=== PATIENT | male | born 1935 | race Caucasian/White ===

== ENCOUNTER 2017-12-05 12:04 | Inpatient (IN) | payer MEDICARE, OTHER ==
[~2017-12-05] VITALS: Ht 165.1 cm; Wt 57.5 kg
[2017-12-05] MEDS: PHENAZOPYRIDINE HCL 100 MG TAB PO SCH (01:00)
[~2017-12-05 12:04] MED LIST: AMLO10TA12; ATEN50TA80; CLOT1CRE13; FOSI20TA3; GABA300C10; HYDR10TA35; HYDRX10T; NIAC1TAB; OXYC-589; PANTOPRAZOLE; RANI300T3; TEMA15CA
[2017-12-05] MEDS ORDERED: ASPirin 81 mg TAB PO ONE (12:30)
[2017-12-05] MEDS ORDERED: MORPHINE SULFATE 4 MG/ML SYR/VIAL IV ONE ×2 (13:30→16:00)
[2017-12-05] MEDS ORDERED: PANTOPRAZOLE 40 MG/10 ML VIAL IV ONE (13:30)
[2017-12-05] MEDS ORDERED: ONDANSETRON HCL 4 MG/2 ML VIAL IV ONE (13:30)
[2017-12-05 13:43] LABS: Basophils # (auto) 0 uL; Basophils % (auto) 0.3 % (0.0-2.0); Eosinophils # (auto) 0 uL; Eosinophils % (auto) 0.5 % (0.0-7.0); Hematocrit 39.8 % (41.0-53.0); Hemoglobin 13.3 g/dL (13.5-17.5); Lymphocytes # (auto) 1.3 uL; Lymphocytes % (auto) 12.8 % (10.0-50.0); Mean Corpuscular Hemoglobin 30.9 pg (28.0-32.0); Mean Corpuscular Hgb Conc. 33.6 g/dL (32.0-36.0); Mean Corpuscular Volume 92.1 fL (80.0-100.0); Monocytes # (auto) 0.7 uL; Monocytes % (auto) 7.1 % (0.0-12.0); Neutrophils # (auto) 8.2 uL; Neutrophils % (auto) 79.3 % (37.0-80.0); Platelet Count (auto) 181 10^3/uL (140-450); Red Blood Cells 4.32 10^6/uL (4.5-5.90); Red Cell Distribution Width 13.8 % (11.8-14.3); White Blood Cell 10.4 10^3/uL (4.4-10.8)
[2017-12-05 13:57] LABS: INR 1.03 (0.9-1.15); Partial Thromboplastin Time 28.2 sec (23.78-33.04)
[2017-12-05 14:02] LABS: Albumin 3.7 g/dL (3.4-5.0); Calcium 8.6 mg/dL (8.5-10.1); Magnesium 2.3 mg/dL (1.6-2.6); Potassium 3.5 mmol/L (3.5-5.1)
[2017-12-05 14:04] LABS: BUN/Creatinine Ratio 14.5
[2017-12-05 14:09] LABS: Bilirubin, Total 0.4 mg/dL (0.2-1.0); Total Protein 7.6 g/dL (6.4-8.2)
[2017-12-05] MEDS ORDERED: FUROSEMIDE 40 MG/4 ML VIAL IV ONE (14:15)
[2017-12-05] MEDS ORDERED: cloNIDine HCL 0.1 MG TAB PO PRN (14:15)
[2017-12-05] MEDS ORDERED: POTASSIUM CHL 10 Meq TABLET PO ONE (14:15)
[2017-12-05] MEDS ORDERED: PANTOPRAZOLE 40 MG TAB PO ONE (14:15)
[2017-12-05] MEDS ORDERED: ONDANSETRON HCL 4 MG/2 ML VIAL IV PRN (14:30)
[2017-12-05] MEDS ORDERED: NITROGLYCERIN 0.4 MG SL TAB SL ONE (14:30)
[2017-12-05] MEDS ORDERED: ZOLPIDEM TARTRATE 5 MG TAB PO PRN (14:30)
[2017-12-05] MEDS ORDERED: NITROGLYCERIN 0.4 MG SL TAB SL PRN ×2 (14:30)
[2017-12-05] MEDS ORDERED: ALUM & MAG HYDROX-SIMETH LIQ(MAALOX) 30 ML PO ONE (14:30)
[2017-12-05] MEDS ORDERED: MORPHINE SULFATE 4 MG/ML SYR/VIAL IV PRN (14:30)
[2017-12-05] MEDS ORDERED: ENOXAPARIN SOD 60 MG/0.6 ML SYRINGE SC ONE (15:00)
[2017-12-05] MEDS ORDERED: ENOXAPARIN SOD 30 MG/0.3 ML SYRINGE IV ONE (15:30)
[2017-12-05] MEDS: MORPHINE SULF INJ 2 MG/ML SYRINGE 1ML IV PRN ×2 (15:39→20:15)
[2017-12-05] MEDS ORDERED: HEPARIN SODIUM (PORCINE) 5000 UNITS/ML 1ML VIAL IV ONE (16:00)
[2017-12-05] MEDS ORDERED: NITROGLYCERIN 50MG/250ML 250 ML IV SCH (16:00)
[2017-12-05] MEDS ORDERED: LIDOCAINE 2% (LOCAL ANESTH.) PF 5ml SDV ONE (16:27)
[2017-12-05] MEDS ORDERED: IODIXANOL 320MG/ML 100ML BTL IV ONE (16:27)
[2017-12-05] MEDS ORDERED: EPINEPHrine HCL 1 MG/10 ML SYRG ONE (16:34)
[2017-12-05] MEDS ORDERED: fentaNYL CITRATE 100 MCG/2 ML VL ONE (16:34)
[2017-12-05] MEDS ORDERED: SODIUM CHL 0.9% 50 ML ONE (16:34)
[2017-12-05] MEDS ORDERED: MIDAZOLAM HCL 1MG/1ML-2 ML VIAL ONE (16:34)
[2017-12-05] MEDS ORDERED: ANGIOMAX 250 MG VIAL IV ONE (16:34)
[2017-12-05] MEDS ORDERED: ATROPINE SULF 1 MG/10ml SYR ONE (16:34)
[2017-12-05] MEDS ORDERED: EPINEPHrine HCL 250 ML IV ONE (17:25)
[2017-12-05] MEDS ORDERED: ASPirin 325 MG TAB ONE (17:37)
[2017-12-05] MEDS ORDERED: CLOPIDOGREL 300 MG TAB ONE (17:37)
[2017-12-05] MEDS ORDERED: FUROSEMIDE 20 MG/2 ML VIAL IV ONE (18:15)
[2017-12-05] MEDS ORDERED: FUROSEMIDE 20 MG/2 ML VIAL ONE (18:20)
[2017-12-05 19:33] VITALS: BP 73/28
[2017-12-05] MEDS: EPINEPHrine HCL INJECTION 4 MG in SODIUM CHL 0.9% 250 ML IV SCH (20:15)
[2017-12-05] MEDS: ATENOLOL 25 MG TAB PO SCH (22:00)
[2017-12-05] MEDS: SODIUM CHLOR 0.9% PF (SALINE LOCK) 10ML VIAL/SYR IV SCH (22:07)
[2017-12-05] MEDS: ATORVASTATIN 20 MG TAB PO SCH (22:07)
[2017-12-05] MEDS: GABAPENTIN 300 MG CAP PO SCH (22:08)
[2017-12-06] VITALS (30 sets, daily range): BP systolic 81–157; BP diastolic 33–126
[2017-12-06] MEDS ORDERED: MORPHINE SULF INJ 2 MG/ML SYRINGE 1ML ONE ×2 (01:58→07:38)
[2017-12-06] MEDS: MORPHINE SULF INJ 2 MG/ML SYRINGE 1ML IV PRN ×3 (02:03→21:30)
[2017-12-06 04:20] LABS: Basophils # (auto) 0 uL; Basophils % (auto) 0.2 % (0.0-2.0); Eosinophils # (auto) 0 uL; Hematocrit 39.1 % (41.0-53.0); Hemoglobin 12.8 g/dL (13.5-17.5); Lymphocytes # (auto) 1.1 uL; Lymphocytes % (auto) 4.8 % (10.0-50.0); Mean Corpuscular Hemoglobin 31.2 pg (28.0-32.0); Mean Corpuscular Hgb Conc. 32.6 g/dL (32.0-36.0); Mean Corpuscular Volume 95.4 fL (80.0-100.0); Monocytes # (auto) 2.5 uL; Monocytes % (auto) 11.2 % (0.0-12.0); Neutrophils # (auto) 18.8 uL; Neutrophils % (auto) 83.8 % (37.0-80.0); Nucleated Red Blood Cells % 0.1 %; Platelet Count (auto) 175 10^3/uL (140-450); Red Cell Distribution Width 14.6 % (11.8-14.3); White Blood Cell 22.4 10^3/uL (4.4-10.8)
[2017-12-06 04:55] LABS: Albumin 3.5 g/dL (3.4-5.0); BUN/Creatinine Ratio 12.4; Bilirubin, Total 0.8 mg/dL (0.2-1.0); Calcium 7.9 mg/dL (8.5-10.1); Magnesium 2.4 mg/dL (1.6-2.6); Potassium 4.9 mmol/L (3.5-5.1); Total Protein 7.2 g/dL (6.4-8.2)
[2017-12-06] MEDS: SODIUM CHLOR 0.9% PF (SALINE LOCK) 10ML VIAL/SYR IV SCH ×3 (06:24→22:06)
[2017-12-06] MEDS: ENOXAPARIN SOD 60 MG/0.6 ML SYRINGE SC SCH ×2 (06:30→17:47)
[2017-12-06] MEDS: LORazepam 0.5 MG TAB PO PRN ×2 (07:42→22:07)
[2017-12-06] MEDS: GABAPENTIN 300 MG CAP PO SCH (07:42)
[2017-12-06] MEDS: ASPirin 81 mg TAB PO SCH (07:42)
[2017-12-06] MEDS ORDERED: MORPHINE SULF INJ 2 MG/ML SYRINGE 1ML IV PRN (07:45)
[2017-12-06] MEDS: DOCUSATE SOD 100 MG CAP PO SCH (09:25)
[2017-12-06] MEDS ORDERED: amLODIPine BESYLATE 5 MG TAB PO SCH (10:00)
[2017-12-06] MEDS ORDERED: FUROSEMIDE 40 MG/4 ML VIAL IV SCH (10:00)
[2017-12-06] MEDS ORDERED: POTASSIUM CHL 10 Meq TABLET PO SCH (10:00)
[2017-12-06] MEDS: ATENOLOL 25 MG TAB PO SCH (10:00)
[2017-12-06] MEDS: PANTOPRAZOLE 40 MG TAB PO SCH (10:00)
[2017-12-06] MEDS: PHENAZOPYRIDINE HCL 100 MG TAB PO SCH (10:00)
[2017-12-06] MEDS ORDERED: LISINOPRIL 10 MG TAB PO SCH (10:00)
[2017-12-06] MEDS ORDERED: SUCCINYLCHOLINE CHLORIDE 20 MG/ML 10ML VIAL IV ONE (10:23)
[2017-12-06] MEDS ORDERED: ETOMIDATE (2MG/ML) 20ML VIAL IV ONE (10:23)
[2017-12-06] MEDS ORDERED: MORPHINE SULFATE 4 MG/ML SYR/VIAL ONE (12:19)
[2017-12-06] MEDS: SODIUM BICARBONATE 50ML VIAL 50 ML in SOD CHL 0.45% 1,000 ML IV SCH (13:29)
[2017-12-06] MEDS: CLOPIDOGREL BISULFATE 75 MG TAB PO SCH (17:15)
[2017-12-06] MEDS: EPINEPHrine HCL INJECTION 4 MG in SODIUM CHL 0.9% 250 ML IV SCH (17:48)
[2017-12-06] MEDS ORDERED: PIPERACILLIN-TAZOB 2.25GM 50 ML IV ONE (19:45)
[2017-12-06] MEDS: ATORVASTATIN 20 MG TAB PO SCH (22:06)
[2017-12-06] MEDS: ACETAMINOPHEN 325 MG TAB PO PRN (22:15)
[2017-12-06] MEDS ORDERED: BELLADONNA ALKAL/OPIUM (16.2/30MG) RECT SUPP PR ONE (22:45)
[2017-12-06] MEDS: PIPERACILLIN-TAZOB 2.25GM 50 ML IV SCH (23:39)
[2017-12-07] VITALS (89 sets, daily range): BP systolic 76–144; BP diastolic 39–119
[2017-12-07] MEDS: MORPHINE SULF INJ 2 MG/ML SYRINGE 1ML IV PRN ×2 (01:31→19:48)
[2017-12-07] MEDS ORDERED: EPINEPHrine HCL 250 ML IV ONE ×3 (03:00→19:13)
[2017-12-07] MEDS ORDERED: NOREPINEPHRINE 8 MG/250ML KIT 250 ML IV ONE (03:09)
[2017-12-07] MEDS: NOREPINEPHRINE 8 MG/250ML KIT 250 ML IV SCH (03:35)
[2017-12-07 04:14] LABS: Basophils # (auto) 0 uL; Basophils % (auto) 0.1 % (0.0-2.0); Eosinophils # (auto) 0 uL; Hematocrit 33.2 % (41.0-53.0); Hemoglobin 11.2 g/dL (13.5-17.5); Lymphocytes # (auto) 2.4 uL; Lymphocytes % (auto) 8.6 % (10.0-50.0); Mean Corpuscular Hgb Conc. 33.6 g/dL (32.0-36.0); Mean Corpuscular Volume 92.2 fL (80.0-100.0); Monocytes # (auto) 3.4 uL; Monocytes % (auto) 12.1 % (0.0-12.0); Neutrophils # (auto) 22.3 uL; Neutrophils % (auto) 79.2 % (37.0-80.0); Platelet Count (auto) 112 10^3/uL (140-450); Red Cell Distribution Width 14.2 % (11.8-14.3); White Blood Cell 28.1 10^3/uL (4.4-10.8)
[2017-12-07 04:25] LABS: Alanine Aminotransferase 858 U/L (16-61); Anion Gap 15 (5-15); BUN/Creatinine Ratio 20.9; Blood Urea Nitrogen 47 mg/dL (7-18); Calcium 7.3 mg/dL (8.5-10.1); Carbon Dioxide 18 mmol/L (21-32); Chloride 106 mmol/L (98-107); GFR African American 36 mL/min; GFR Non-African American 30 mL/min; Glucose 109 mg/dL (74-106); Potassium 4.8 mmol/L (3.5-5.1); Sodium 139 mmol/L (136-145)
[2017-12-07 04:28] LABS: Alkaline Phosphatase 44 U/L (45-117); Bilirubin, Total 0.8 mg/dL (0.2-1.0); Total Protein 6.2 g/dL (6.4-8.2)
[2017-12-07 05:07] LABS: Aspartate Aminotransferase 1501 U/L (15-37)
[2017-12-07] MEDS: PIPERACILLIN-TAZOB 2.25GM 50 ML IV SCH ×3 (05:45→18:01)
[2017-12-07] MEDS: SODIUM CHLOR 0.9% PF (SALINE LOCK) 10ML VIAL/SYR IV SCH ×4 (05:45→22:16)
[2017-12-07] MEDS: ENOXAPARIN SOD 60 MG/0.6 ML SYRINGE SC SCH (05:45)
[2017-12-07] MEDS: SODIUM BICARBONATE 50ML VIAL 50 ML in SOD CHL 0.45% 1,000 ML IV SCH (10:00)
[2017-12-07] MEDS ORDERED: LINEZOLID 600MG/300ML 300 ML IV ONE (10:30)
[2017-12-07] MEDS: CLOPIDOGREL BISULFATE 75 MG TAB PO SCH (10:34)
[2017-12-07] MEDS: PANTOPRAZOLE 40 MG TAB PO SCH (10:34)
[2017-12-07] MEDS: DOCUSATE SOD 100 MG CAP PO SCH (10:34)
[2017-12-07] MEDS: ASPirin 81 mg TAB PO SCH (10:34)
[2017-12-07] MEDS ORDERED: LIDOCAINE 1% (LOCAL ANESTH.) PF 5ml SDV ID ONE (16:30)
[2017-12-07] MEDS ORDERED: IBUPROFEN 400 MG TAB PO PRN (18:15)
[2017-12-07] MEDS: LINEZOLID 600MG/300ML 300 ML IV SCH (22:16)
[2017-12-07] MEDS: ATORVASTATIN 20 MG TAB PO SCH (22:16)
[2017-12-08] VITALS (71 sets, daily range): BP systolic 82–135; BP diastolic 38–86
[2017-12-08] MEDS: PIPERACILLIN-TAZOB 2.25GM 50 ML IV SCH ×5 (00:03→23:43)
[2017-12-08] MEDS: NOREPINEPHRINE 8 MG/250ML KIT 250 ML IV SCH (03:35)
[2017-12-08] MEDS: EPINEPHrine HCL INJECTION 4 MG in SODIUM CHL 0.9% 250 ML IV SCH ×2 (03:47→19:30)
[2017-12-08 04:31] LABS: Basophils # (auto) 0 uL; Basophils % (auto) 0.2 % (0.0-2.0); Eosinophils # (auto) 0 uL; Eosinophils % (auto) 0.1 % (0.0-7.0); Hematocrit 28.6 % (41.0-53.0); Hemoglobin 9.8 g/dL (13.5-17.5); Lymphocytes # (auto) 1.3 uL; Mean Corpuscular Hemoglobin 31.6 pg (28.0-32.0); Mean Corpuscular Hgb Conc. 34.1 g/dL (32.0-36.0); Mean Corpuscular Volume 92.7 fL (80.0-100.0); Monocytes # (auto) 1.9 uL; Monocytes % (auto) 10.4 % (0.0-12.0); Neutrophils # (auto) 15.2 uL; Neutrophils % (auto) 82.3 % (37.0-80.0); Platelet Count (auto) 77 10^3/uL (140-450); Red Blood Cells 3.09 10^6/uL (4.5-5.90); Red Cell Distribution Width 14.3 % (11.8-14.3); White Blood Cell 18.5 10^3/uL (4.4-10.8)
[2017-12-08 04:55] LABS: Albumin 2.6 g/dL (3.4-5.0); BUN/Creatinine Ratio 30.5; Calcium 6.8 mg/dL (8.5-10.1); Potassium 3.5 mmol/L (3.5-5.1); Total Protein 5.7 g/dL (6.4-8.2)
[2017-12-08] MEDS: ENOXAPARIN SOD 60 MG/0.6 ML SYRINGE SC SCH (06:01)
[2017-12-08] MEDS: SODIUM CHLOR 0.9% PF (SALINE LOCK) 10ML VIAL/SYR IV SCH ×3 (06:01→21:01)
[2017-12-08] MEDS: SODIUM BICARBONATE 50ML VIAL 50 ML in SOD CHL 0.45% 1,000 ML IV SCH (06:05)
[2017-12-08] MEDS ORDERED: FUROSEMIDE 40 MG/4 ML VIAL ONE ×2 (09:45→14:55)
[2017-12-08] MEDS: CLOPIDOGREL BISULFATE 75 MG TAB PO SCH (10:00)
[2017-12-08] MEDS: DOCUSATE SOD 100 MG CAP PO SCH (10:00)
[2017-12-08] MEDS: PANTOPRAZOLE 40 MG TAB PO SCH (10:00)
[2017-12-08] MEDS: LINEZOLID 600MG/300ML 300 ML IV SCH (10:00)
[2017-12-08] MEDS: ASPirin 81 mg TAB PO SCH (10:00)
[2017-12-08] MEDS: MORPHINE SULF INJ 2 MG/ML SYRINGE 1ML IV PRN ×3 (10:50→21:38)
[2017-12-08] MEDS ORDERED: FUROSEMIDE 40 MG/4 ML VIAL IV ONE ×2 (11:30→15:00)
[2017-12-08] MEDS ORDERED: POTASSIUM CHL 20 Meq TABLET PO ONE ×3 (11:30→15:00)
[2017-12-08] MEDS: Ensure Enlive Strawberry 8oz Bottle PO SCH ×2 (17:59→21:41)
[2017-12-08] MEDS: FUROSEMIDE INJECTION 250 MG in D5W 5% 225 ML IV SCH (18:15)
[2017-12-08 18:50] LABS: BUN/Creatinine Ratio 26.3; Calcium 7.4 mg/dL (8.5-10.1); Magnesium 2.5 mg/dL (1.6-2.6); Potassium 4.1 mmol/L (3.5-5.1)
[2017-12-08] MEDS: CARVEDILOL 12.5 MG TAB PO SCH (21:02)
[2017-12-08] MEDS: ATORVASTATIN 20 MG TAB PO SCH (21:02)
[2017-12-08] MEDS: METOPROLOL SUCCINATE XL 50 MG TAB PO SCH (21:03)
[2017-12-08] MEDS: LORazepam 0.5 MG TAB PO PRN (22:14)
[2017-12-08] MEDS: SACUBITRIL-VALSARTAN 24mg/26mg TAB PO SCH (23:27)
[2017-12-08] MEDS ORDERED: HALOPERIDOL LACTATE 5 MG/ML INJ VIAL ONE (23:41)
[2017-12-08] MEDS ORDERED: HALOPERIDOL LACTATE 5 MG/ML INJ VIAL IM ONE (23:45)
[2017-12-09] VITALS (49 sets, daily range): BP systolic 71–154; BP diastolic 31–55
[2017-12-09] MEDS: NOREPINEPHRINE 8 MG/250ML KIT 250 ML IV SCH (03:35)
[2017-12-09 04:15] LABS: Basophils # (auto) 0.1 uL; Basophils % (auto) 0.4 % (0.0-2.0); Eosinophils # (auto) 0 uL; Eosinophils % (auto) 0.1 % (0.0-7.0); Hematocrit 30.1 % (41.0-53.0); Hemoglobin 10.4 g/dL (13.5-17.5); Lymphocytes # (auto) 0.9 uL; Lymphocytes % (auto) 4.9 % (10.0-50.0); Mean Corpuscular Hemoglobin 31.9 pg (28.0-32.0); Mean Corpuscular Hgb Conc. 34.4 g/dL (32.0-36.0); Mean Corpuscular Volume 92.8 fL (80.0-100.0); Monocytes # (auto) 1.4 uL; Neutrophils % (auto) 86.6 % (37.0-80.0); Nucleated Red Blood Cells % 0.1 %; Platelet Count (auto) 68 10^3/uL (140-450); Red Blood Cells 3.25 10^6/uL (4.5-5.90); Red Cell Distribution Width 14.1 % (11.8-14.3); White Blood Cell 17.4 10^3/uL (4.4-10.8)
[2017-12-09 04:36] LABS: Albumin 2.5 g/dL (3.4-5.0); BUN/Creatinine Ratio 27.5; Calcium 7.2 mg/dL (8.5-10.1); Potassium 4.1 mmol/L (3.5-5.1)
[2017-12-09 04:43] LABS: Bilirubin, Total 1.1 mg/dL (0.2-1.0); Total Protein 5.8 g/dL (6.4-8.2)
[2017-12-09] MEDS: Ensure Enlive Strawberry 8oz Bottle PO SCH ×4 (06:11→22:00)
[2017-12-09] MEDS: PIPERACILLIN-TAZOB 2.25GM 50 ML IV SCH ×3 (06:11→18:00)
[2017-12-09] MEDS: ENOXAPARIN SOD 60 MG/0.6 ML SYRINGE SC SCH (06:11)
[2017-12-09] MEDS: SACUBITRIL-VALSARTAN 24mg/26mg TAB PO SCH (10:00)
[2017-12-09] MEDS: SODIUM CHLOR 0.9% PF (SALINE LOCK) 10ML VIAL/SYR IV SCH ×2 (10:00→22:00)
[2017-12-09] MEDS: DOCUSATE SOD 100 MG CAP PO SCH (10:00)
[2017-12-09] MEDS: METOPROLOL SUCCINATE XL 50 MG TAB PO SCH (11:05)
[2017-12-09] MEDS: PANTOPRAZOLE 40 MG TAB PO SCH (11:07)
[2017-12-09] MEDS: CLOPIDOGREL BISULFATE 75 MG TAB PO SCH (11:07)
[2017-12-09] MEDS: CARVEDILOL 12.5 MG TAB PO SCH (11:09)
[2017-12-09] MEDS: ASPirin 81 mg TAB PO SCH (11:09)
[2017-12-09 12:25] LABS: Potassium 3.6 mmol/L (3.5-5.1)
[2017-12-09] MEDS ORDERED: IODIXANOL 320MG/ML 100ML BTL IV ONE ×2 (14:20→17:02)
[2017-12-09] MEDS ORDERED: LIDOCAINE 2%HCL (LOCAL ANESTH.) INJ 20ML MDV ONE (14:20)
[2017-12-09 15:36] LABS: INR 1.21 (0.9-1.15); Prothrombin Time 12.8 sec (9.27-12.13)
[2017-12-09] MEDS ORDERED: LIDOCAINE 2% (LOCAL ANESTH.) PF 5ml SDV ONE ×2 (16:01→16:53)
[2017-12-09] MEDS ORDERED: HEPARIN SODIUM (PORCINE) 5000 UNITS/ML 1ML VIAL ONE (16:48)
[2017-12-09] MEDS ORDERED: HEPARIN DRIP/D5W 100UNITS/ML 250 ML IV ONE (16:56)
[2017-12-09] MEDS ORDERED: HEPARIN DRIP/D5W 100UNITS/ML 250 ML IV SCH ×2 (17:00)
[2017-12-09] MEDS: EPINEPHrine HCL INJECTION 4 MG in SODIUM CHL 0.9% 250 ML IV SCH (18:00)
[2017-12-09] MEDS: FUROSEMIDE INJECTION 250 MG in D5W 5% 225 ML IV SCH (18:15)
[2017-12-09] MEDS ORDERED: MIDAZOLAM HCL 1MG/1ML-2 ML VIAL ONE (18:31)
[2017-12-09] MEDS ORDERED: fentaNYL CITRATE 100 MCG/2 ML VL ONE (18:31)
[2017-12-09] MEDS ORDERED: DOBUTamine 1000MCG/ML 250 ML IV ONE (18:38)
[2017-12-09] MEDS ORDERED: PROTAMINE SULFATE 10 MG/ML 5ML VIAL IV ONE (18:51)
[2017-12-09] MEDS ORDERED: DOBUTamine 1000MCG/ML 250 ML IV SCH (19:00)
[2017-12-09] MEDS: DOBUTamine 1000MCG/ML 250 ML IV SCH (19:00)
[2017-12-09] MEDS: ATORVASTATIN 20 MG TAB PO SCH (22:00)
[2017-12-10] VITALS (90 sets, daily range): BP systolic 76–142; BP diastolic 27–98
[2017-12-10] MEDS: PIPERACILLIN-TAZOB 2.25GM 50 ML IV SCH ×2 (00:08→06:00)
[2017-12-10] MEDS: MORPHINE SULF INJ 2 MG/ML SYRINGE 1ML IV PRN (02:11)
[2017-12-10] MEDS: NOREPINEPHRINE 8 MG/250ML KIT 250 ML IV SCH (03:35)
[2017-12-10 04:00] LABS: Basophils # (auto) 0 uL; Eosinophils # (auto) 0 uL; Eosinophils % (auto) 0.1 % (0.0-7.0); Lymphocytes # (auto) 0.8 uL; Monocytes # (auto) 1.5 uL
[2017-12-10 04:02] LABS: Basophils % (auto) 0.3 % (0.0-2.0); Hematocrit 26.5 % (41.0-53.0); Lymphocytes % (auto) 6.5 % (10.0-50.0); Mean Corpuscular Hemoglobin 31.3 pg (28.0-32.0); Mean Corpuscular Volume 92.1 fL (80.0-100.0); Monocytes % (auto) 11.8 % (0.0-12.0); Neutrophils # (auto) 10.5 uL; Neutrophils % (auto) 81.3 % (37.0-80.0); Platelet Count (auto) 65 10^3/uL (140-450); Red Blood Cells 2.87 10^6/uL (4.5-5.90); Red Cell Distribution Width 14.2 % (11.8-14.3); White Blood Cell 12.9 10^3/uL (4.4-10.8)
[2017-12-10 04:07] LABS: INR 1.22 (0.9-1.15); Partial Thromboplastin Time 35.2 sec (23.78-33.04); Prothrombin Time 12.9 sec (9.27-12.13)
[2017-12-10 04:18] LABS: Albumin 2.3 g/dL (3.4-5.0); BUN/Creatinine Ratio 30.9; Potassium 3.7 mmol/L (3.5-5.1); Total Protein 5.7 g/dL (6.4-8.2)
[2017-12-10] MEDS: LORazepam 0.5 MG TAB PO PRN ×2 (04:36→22:59)
[2017-12-10] MEDS: Ensure Enlive Strawberry 8oz Bottle PO SCH ×4 (06:00→21:39)
[2017-12-10] MEDS: ENOXAPARIN SOD 60 MG/0.6 ML SYRINGE SC SCH (06:39)
[2017-12-10 08:30] LABS: Basophils # (auto) 0 uL; Basophils % (auto) 0.2 % (0.0-2.0); Eosinophils # (auto) 0 uL; Eosinophils % (auto) 0.1 % (0.0-7.0); Hematocrit 26.2 % (41.0-53.0); Hemoglobin 8.7 g/dL (13.5-17.5); Lymphocytes # (auto) 0.9 uL; Lymphocytes % (auto) 6.9 % (10.0-50.0); Mean Corpuscular Hemoglobin 30.9 pg (28.0-32.0); Mean Corpuscular Hgb Conc. 33.3 g/dL (32.0-36.0); Mean Corpuscular Volume 92.8 fL (80.0-100.0); Monocytes # (auto) 1.7 uL; Monocytes % (auto) 12.7 % (0.0-12.0); Neutrophils # (auto) 10.8 uL; Neutrophils % (auto) 80.1 % (37.0-80.0); Platelet Count (auto) 68 10^3/uL (140-450); Red Blood Cells 2.82 10^6/uL (4.5-5.90); White Blood Cell 13.5 10^3/uL (4.4-10.8)
[2017-12-10] MEDS: DOBUTamine 1000MCG/ML 250 ML IV SCH ×2 (08:30→21:38)
[2017-12-10] MEDS: PANTOPRAZOLE 40 MG TAB PO SCH (10:00)
[2017-12-10] MEDS: ASPirin 81 mg TAB PO SCH (10:00)
[2017-12-10] MEDS: CLOPIDOGREL BISULFATE 75 MG TAB PO SCH (10:00)
[2017-12-10] MEDS: SODIUM CHLOR 0.9% PF (SALINE LOCK) 10ML VIAL/SYR IV SCH ×2 (10:00→21:38)
[2017-12-10] MEDS: DOCUSATE SOD 100 MG CAP PO SCH (10:00)
[2017-12-10] MEDS ORDERED: METOPROLOL SUCCINATE XL 50 MG TAB PO SCH (11:00)
[2017-12-10] MEDS ORDERED: MORPHINE SULF INJ 2 MG/ML SYRINGE 1ML IV PRN ×2 (12:45)
[2017-12-10] MEDS: DIGOXIN 0.125 MG TAB PO SCH (13:15)
[2017-12-10] MEDS: cefTRIAXone 1GM/10ml IVPUSH 10 ML IV SCH (13:15)
[2017-12-10] MEDS: FUROSEMIDE INJECTION 250 MG in D5W 5% 225 ML IV SCH (13:16)
[2017-12-10] MEDS: AZITHROMYCIN 500MG/ 250ML 250 ML IV SCH (13:22)
[2017-12-10] MEDS: ATORVASTATIN 20 MG TAB PO SCH (21:39)
[2017-12-11] VITALS (59 sets, daily range): BP systolic 92–165; BP diastolic 36–95
[2017-12-11 04:20] LABS: Basophils # (auto) 0 uL; Basophils % (auto) 0.1 % (0.0-2.0); Eosinophils # (auto) 0.1 uL; Eosinophils % (auto) 0.6 % (0.0-7.0); Hematocrit 27.5 % (41.0-53.0); Hemoglobin 9.2 g/dL (13.5-17.5); Lymphocytes # (auto) 1.3 uL; Mean Corpuscular Hemoglobin 30.9 pg (28.0-32.0); Mean Corpuscular Hgb Conc. 33.4 g/dL (32.0-36.0); Mean Corpuscular Volume 92.4 fL (80.0-100.0); Monocytes # (auto) 1.8 uL; Neutrophils # (auto) 11.6 uL; Neutrophils % (auto) 78.3 % (37.0-80.0); Nucleated Red Blood Cells % 0.1 %; Platelet Count (auto) 76 10^3/uL (140-450); Red Blood Cells 2.98 10^6/uL (4.5-5.90); Red Cell Distribution Width 14.3 % (11.8-14.3); White Blood Cell 14.8 10^3/uL (4.4-10.8)
[2017-12-11 04:58] LABS: Albumin 2.3 g/dL (3.4-5.0); BUN/Creatinine Ratio 34.4; Bilirubin, Total 0.6 mg/dL (0.2-1.0); Calcium 7.4 mg/dL (8.5-10.1); Potassium 3.3 mmol/L (3.5-5.1)
[2017-12-11] MEDS: Ensure Enlive Strawberry 8oz Bottle PO SCH ×4 (06:09→21:44)
[2017-12-11] MEDS ORDERED: ENOXAPARIN SOD 40 MG/0.4 ML SYRINGE SC SCH (10:00)
[2017-12-11] MEDS ORDERED: ENOXAPARIN SOD 30 MG/0.3 ML SYRINGE SC SCH (10:00)
[2017-12-11] MEDS: DOBUTamine 1000MCG/ML 250 ML IV SCH (10:02)
[2017-12-11] MEDS: cefTRIAXone 1GM/10ml IVPUSH 10 ML IV SCH (10:27)
[2017-12-11] MEDS: AZITHROMYCIN 500MG/ 250ML 250 ML IV SCH (10:31)
[2017-12-11] MEDS: SODIUM CHLOR 0.9% PF (SALINE LOCK) 10ML VIAL/SYR IV SCH ×2 (10:36→21:41)
[2017-12-11] MEDS: DIGOXIN 0.125 MG TAB PO SCH (11:30)
[2017-12-11] MEDS: DOCUSATE SOD 100 MG CAP PO SCH (11:31)
[2017-12-11] MEDS: CLOPIDOGREL BISULFATE 75 MG TAB PO SCH (11:32)
[2017-12-11] MEDS: ASPirin 81 mg TAB PO SCH (11:33)
[2017-12-11] MEDS: PANTOPRAZOLE 40 MG TAB PO SCH (11:35)
[2017-12-11 12:50] LABS: Magnesium 2.1 mg/dL (1.6-2.6); Potassium 3.5 mmol/L (3.5-5.1)
[2017-12-11] MEDS: TORSEMIDE 20 MG TAB PO SCH (18:23)
[2017-12-11] MEDS: SACUBITRIL-VALSARTAN 24mg/26mg TAB PO SCH (21:41)
[2017-12-11] MEDS: ATORVASTATIN 20 MG TAB PO SCH (21:43)
[2017-12-12 04:00] VITALS: BP 143/68
[2017-12-12 05:37] LABS: Basophils # (auto) 0.1 uL; Basophils % (auto) 0.3 % (0.0-2.0); Eosinophils # (auto) 0 uL; Eosinophils % (auto) 0.1 % (0.0-7.0); Hematocrit 34.5 % (41.0-53.0); Hemoglobin 11.4 g/dL (13.5-17.5); Lymphocytes # (auto) 1.1 uL; Lymphocytes % (auto) 5.8 % (10.0-50.0); Mean Corpuscular Hemoglobin 30.6 pg (28.0-32.0); Mean Corpuscular Volume 92.9 fL (80.0-100.0); Monocytes # (auto) 1.6 uL; Monocytes % (auto) 8.3 % (0.0-12.0); Neutrophils # (auto) 16.9 uL; Neutrophils % (auto) 85.5 % (37.0-80.0); Nucleated Red Blood Cells % 0.1 %; Platelet Count (auto) 126 10^3/uL (140-450); Red Blood Cells 3.72 10^6/uL (4.5-5.90); Red Cell Distribution Width 14.5 % (11.8-14.3); White Blood Cell 19.7 10^3/uL (4.4-10.8)
[2017-12-12] MEDS: Ensure Enlive Strawberry 8oz Bottle PO SCH ×4 (06:02→21:52)
[2017-12-12] MEDS: TORSEMIDE 20 MG TAB PO SCH ×2 (06:02→18:00)
[2017-12-12 06:10] LABS: Albumin 2.4 g/dL (3.4-5.0); BUN/Creatinine Ratio 31.7; Bilirubin, Total 0.8 mg/dL (0.2-1.0); Calcium 7.8 mg/dL (8.5-10.1); Magnesium 2.5 mg/dL (1.6-2.6); Potassium 3.5 mmol/L (3.5-5.1); Total Protein 6.6 g/dL (6.4-8.2)
[2017-12-12 07:53] VITALS: BP 161/75
[2017-12-12] MEDS: DOCUSATE SOD 100 MG CAP PO SCH (10:00)
[2017-12-12] MEDS: AZITHROMYCIN 500MG/ 250ML 250 ML IV SCH (11:16)
[2017-12-12] MEDS: cefTRIAXone 1GM/10ml IVPUSH 10 ML IV SCH (11:16)
[2017-12-12] MEDS: SODIUM CHLOR 0.9% PF (SALINE LOCK) 10ML VIAL/SYR IV SCH ×2 (11:16→21:27)
[2017-12-12 11:58] VITALS: BP 134/58
[2017-12-12] MEDS ORDERED: LORazepam 0.5 MG TAB PO PRN (13:45)
[2017-12-12] MEDS ORDERED: PIPERACILLIN-TAZOB 3.375GM 100 ML IV ONE (14:00)
[2017-12-12] MEDS: CLOPIDOGREL BISULFATE 75 MG TAB PO SCH (15:20)
[2017-12-12] MEDS: SACUBITRIL-VALSARTAN 24mg/26mg TAB PO SCH ×2 (15:20→21:27)
[2017-12-12] MEDS: PANTOPRAZOLE 40 MG TAB PO SCH (15:20)
[2017-12-12] MEDS: ASPirin 81 mg TAB PO SCH (15:20)
[2017-12-12] MEDS: DIGOXIN 0.125 MG TAB PO SCH (15:21)
[2017-12-12 15:43] VITALS: BP 148/70
[2017-12-12 19:56] VITALS: BP 123/52
[2017-12-12] MEDS: ATORVASTATIN 20 MG TAB PO SCH (21:26)
[2017-12-12] MEDS: PIPERACILLIN-TAZOB 3.375GM 100 ML IV SCH (21:26)
[2017-12-12] MEDS: ACETAMINOPHEN 325 MG TAB PO PRN (21:36)
[2017-12-13] VITALS (7 sets, daily range): BP systolic 110–131; BP diastolic 46–63
[2017-12-13] MEDS: PIPERACILLIN-TAZOB 3.375GM 100 ML IV SCH ×4 (02:54→21:54)
[2017-12-13] MEDS: TORSEMIDE 20 MG TAB PO SCH ×2 (06:00→18:30)
[2017-12-13] MEDS: Ensure Enlive Strawberry 8oz Bottle PO SCH ×4 (06:00→22:00)
[2017-12-13] MEDS: SODIUM CHLOR 0.9% PF (SALINE LOCK) 10ML VIAL/SYR IV SCH ×2 (10:00→21:54)
[2017-12-13] MEDS: SACUBITRIL-VALSARTAN 24mg/26mg TAB PO SCH ×2 (10:00→21:55)
[2017-12-13] MEDS ORDERED: MORPHINE SULF INJ 2 MG/ML SYRINGE 1ML IV PRN ×2 (11:00)
[2017-12-13] MEDS: DOCUSATE SOD 100 MG CAP PO SCH (11:03)
[2017-12-13] MEDS: ASPirin 81 mg TAB PO SCH (11:03)
[2017-12-13] MEDS: DIGOXIN 0.125 MG TAB PO SCH (11:04)
[2017-12-13] MEDS: CLOPIDOGREL BISULFATE 75 MG TAB PO SCH (11:04)
[2017-12-13] MEDS: PANTOPRAZOLE 40 MG TAB PO SCH (11:04)
[2017-12-13] MEDS: ATORVASTATIN 20 MG TAB PO SCH (21:54)
[2017-12-13] MEDS: ACETAMINOPHEN 325 MG TAB PO PRN (22:26)
[2017-12-14] VITALS (9 sets, daily range): BP systolic 98–129; BP diastolic 52–66
[2017-12-14] MEDS: PIPERACILLIN-TAZOB 3.375GM 100 ML IV SCH ×4 (03:28→20:09)
[2017-12-14] MEDS: Ensure Enlive Strawberry 8oz Bottle PO SCH ×4 (05:58→20:09)
[2017-12-14] MEDS: TORSEMIDE 20 MG TAB PO SCH (05:58)
[2017-12-14] MEDS: SODIUM CHLOR 0.9% PF (SALINE LOCK) 10ML VIAL/SYR IV SCH ×2 (10:01→20:09)
[2017-12-14] MEDS: DIGOXIN 0.125 MG TAB PO SCH (10:02)
[2017-12-14] MEDS: ASPirin 81 mg TAB PO SCH (10:02)
[2017-12-14] MEDS: PANTOPRAZOLE 40 MG TAB PO SCH (10:02)
[2017-12-14] MEDS: SACUBITRIL-VALSARTAN 24mg/26mg TAB PO SCH ×2 (10:02→20:09)
[2017-12-14] MEDS: CLOPIDOGREL BISULFATE 75 MG TAB PO SCH (10:02)
[2017-12-14] MEDS: DOCUSATE SOD 100 MG CAP PO SCH (10:02)
[2017-12-14] MEDS ORDERED: BUMETANIDE (0.25MG/ML) 4 ML VIAL IV ONE (13:00)
[2017-12-14 13:27] LABS: Basophils # (auto) 0.1 uL; Basophils % (auto) 0.6 % (0.0-2.0); Eosinophils # (auto) 0.2 uL; Eosinophils % (auto) 1.1 % (0.0-7.0); Hematocrit 33.2 % (41.0-53.0); Hemoglobin 10.9 g/dL (13.5-17.5); Lymphocytes % (auto) 5.4 % (10.0-50.0); Mean Corpuscular Hemoglobin 30.8 pg (28.0-32.0); Mean Corpuscular Hgb Conc. 32.8 g/dL (32.0-36.0); Monocytes # (auto) 1.2 uL; Monocytes % (auto) 6.4 % (0.0-12.0); Neutrophils % (auto) 86.5 % (37.0-80.0); Platelet Count (auto) 185 10^3/uL (140-450); Red Blood Cells 3.54 10^6/uL (4.5-5.90); Red Cell Distribution Width 14.6 % (11.8-14.3); White Blood Cell 18.5 10^3/uL (4.4-10.8)
[2017-12-14 13:50] LABS: BUN/Creatinine Ratio 19.3; Calcium 7.3 mg/dL (8.5-10.1)
[2017-12-14 13:53] LABS: Potassium 2.9 mmol/L (3.5-5.1)
[2017-12-14 13:54] LABS: Bilirubin, Total 0.9 mg/dL (0.2-1.0); Total Protein 6.6 g/dL (6.4-8.2)
[2017-12-14] MEDS ORDERED: POTASSIUM CHL 20 Meq TABLET PO ONE ×2 (14:00→16:48)
[2017-12-14] MEDS: BUMETANIDE (0.25MG/ML) 4 ML VIAL IV SCH (17:41)
[2017-12-14] MEDS: ATORVASTATIN 20 MG TAB PO SCH (20:09)
[2017-12-15] VITALS (15 sets, daily range): BP systolic 87–163; BP diastolic 49–70
[2017-12-15] MEDS: PIPERACILLIN-TAZOB 3.375GM 100 ML IV SCH ×4 (02:15→21:20)
[2017-12-15] MEDS: Ensure Enlive Strawberry 8oz Bottle PO SCH ×4 (05:31→21:22)
[2017-12-15] MEDS: BUMETANIDE (0.25MG/ML) 4 ML VIAL IV SCH ×2 (05:31→17:40)
[2017-12-15 06:08] LABS: Basophils # (auto) 0 uL; Basophils % (auto) 0.3 % (0.0-2.0); Eosinophils # (auto) 0.1 uL; Eosinophils % (auto) 0.7 % (0.0-7.0); Hematocrit 34.4 % (41.0-53.0); Hemoglobin 11.6 g/dL (13.5-17.5); Lymphocytes % (auto) 5.5 % (10.0-50.0); Mean Corpuscular Hemoglobin 32.5 pg (28.0-32.0); Mean Corpuscular Hgb Conc. 33.6 g/dL (32.0-36.0); Mean Corpuscular Volume 96.7 fL (80.0-100.0); Monocytes # (auto) 1.3 uL; Monocytes % (auto) 7.3 % (0.0-12.0); Neutrophils % (auto) 86.2 % (37.0-80.0); Platelet Count (auto) 210 10^3/uL (140-450); Red Blood Cells 3.56 10^6/uL (4.5-5.90); Red Cell Distribution Width 14.7 % (11.8-14.3); White Blood Cell 17.4 10^3/uL (4.4-10.8)
[2017-12-15 06:30] LABS: Calcium 7.9 mg/dL (8.5-10.1); Potassium 4.1 mmol/L (3.5-5.1)
[2017-12-15 06:32] LABS: BUN/Creatinine Ratio 19.2
[2017-12-15] MEDS: DOCUSATE SOD 100 MG CAP PO SCH (10:00)
[2017-12-15] MEDS: SODIUM CHLOR 0.9% PF (SALINE LOCK) 10ML VIAL/SYR IV SCH ×2 (10:17→21:21)
[2017-12-15] MEDS: MILRINONE 20MG/100ML 100 ML IV SCH (13:16)
[2017-12-15] MEDS: SACUBITRIL-VALSARTAN 24mg/26mg TAB PO SCH ×2 (15:15→22:00)
[2017-12-15] MEDS: CLOPIDOGREL BISULFATE 75 MG TAB PO SCH (15:15)
[2017-12-15] MEDS: DIGOXIN 0.125 MG TAB PO SCH (15:15)
[2017-12-15] MEDS: PANTOPRAZOLE 40 MG TAB PO SCH (15:15)
[2017-12-15] MEDS: ASPirin 81 mg TAB PO SCH (15:15)
[2017-12-15] MEDS: ATORVASTATIN 20 MG TAB PO SCH (21:22)
[2017-12-15] MEDS: CARVEDILOL 3.125 MG TAB PO SCH (22:00)
[2017-12-16] VITALS (14 sets, daily range): BP systolic 83–103; BP diastolic 40–57
[2017-12-16] MEDS: MILRINONE 20MG/100ML 100 ML IV SCH (01:41)
[2017-12-16] MEDS: PIPERACILLIN-TAZOB 3.375GM 100 ML IV SCH ×4 (03:00→21:03)
[2017-12-16] MEDS: Ensure Enlive Strawberry 8oz Bottle PO SCH ×4 (06:00→21:04)
[2017-12-16] MEDS: BUMETANIDE (0.25MG/ML) 4 ML VIAL IV SCH ×2 (06:00→18:24)
[2017-12-16 06:01] LABS: Basophils # (auto) 0.1 uL; Basophils % (auto) 0.3 % (0.0-2.0); Eosinophils # (auto) 0.3 uL; Hematocrit 27.8 % (41.0-53.0); Hemoglobin 9.4 g/dL (13.5-17.5); Lymphocytes # (auto) 1.2 uL; Lymphocytes % (auto) 7.6 % (10.0-50.0); Mean Corpuscular Hemoglobin 32.2 pg (28.0-32.0); Mean Corpuscular Hgb Conc. 33.8 g/dL (32.0-36.0); Mean Corpuscular Volume 95.3 fL (80.0-100.0); Monocytes # (auto) 1.1 uL; Monocytes % (auto) 6.9 % (0.0-12.0); Neutrophils # (auto) 13.2 uL; Neutrophils % (auto) 83.2 % (37.0-80.0); Platelet Count (auto) 228 10^3/uL (140-450); Red Blood Cells 2.91 10^6/uL (4.5-5.90); Red Cell Distribution Width 14.5 % (11.8-14.3); White Blood Cell 15.9 10^3/uL (4.4-10.8)
[2017-12-16 06:29] LABS: Albumin 1.8 g/dL (3.4-5.0); Calcium 7.5 mg/dL (8.5-10.1); Potassium 3.2 mmol/L (3.5-5.1)
[2017-12-16 06:31] LABS: BUN/Creatinine Ratio 21.4
[2017-12-16 06:34] LABS: Bilirubin, Total 1.5 mg/dL (0.2-1.0); Total Protein 6.2 g/dL (6.4-8.2)
[2017-12-16] MEDS: SODIUM CHLOR 0.9% PF (SALINE LOCK) 10ML VIAL/SYR IV SCH ×2 (09:40→21:03)
[2017-12-16] MEDS: DOCUSATE SOD 100 MG CAP PO SCH (10:00)
[2017-12-16] MEDS: CARVEDILOL 3.125 MG TAB PO SCH ×2 (10:00→21:07)
[2017-12-16] MEDS: SACUBITRIL-VALSARTAN 24mg/26mg TAB PO SCH ×3 (10:00→21:08)
[2017-12-16] MEDS ORDERED: POTASSIUM EFFERVESENT TAB 25 MEQ PO ONE (12:15)
[2017-12-16] MEDS ORDERED: VANCOMYCIN PER PHARMACY 0 MG IV SCH (12:15)
[2017-12-16] MEDS: ASPirin 81 mg TAB PO SCH (12:28)
[2017-12-16] MEDS: DIGOXIN 0.125 MG TAB PO SCH (12:28)
[2017-12-16] MEDS: PANTOPRAZOLE 40 MG TAB PO SCH (12:29)
[2017-12-16] MEDS: CLOPIDOGREL BISULFATE 75 MG TAB PO SCH (12:29)
[2017-12-16] MEDS: VANCOMYCIN 1GM/250ML 250 ML IV SCH (14:16)
[2017-12-16] MEDS: ATORVASTATIN 20 MG TAB PO SCH (21:21)
[2017-12-17] VITALS (10 sets, daily range): BP systolic 82–113; BP diastolic 41–70
[2017-12-17] MEDS: PIPERACILLIN-TAZOB 3.375GM 100 ML IV SCH ×4 (02:16→21:04)
[2017-12-17 05:35] LABS: BUN/Creatinine Ratio 24.1; Calcium 7.4 mg/dL (8.5-10.1); Potassium 3.7 mmol/L (3.5-5.1)
[2017-12-17 05:44] LABS: Basophils # (auto) 0.3 uL; Basophils % (auto) 1.9 % (0.0-2.0); Eosinophils # (auto) 0.5 uL; Eosinophils % (auto) 3.7 % (0.0-7.0); Hematocrit 29.4 % (41.0-53.0); Hemoglobin 9.5 g/dL (13.5-17.5); Lymphocytes # (auto) 1.2 uL; Lymphocytes % (auto) 8.3 % (10.0-50.0); Mean Corpuscular Hemoglobin 30.9 pg (28.0-32.0); Mean Corpuscular Hgb Conc. 32.3 g/dL (32.0-36.0); Mean Corpuscular Volume 95.7 fL (80.0-100.0); Monocytes # (auto) 0.9 uL; Monocytes % (auto) 6.5 % (0.0-12.0); Neutrophils # (auto) 11.5 uL; Neutrophils % (auto) 79.6 % (37.0-80.0); Platelet Count (auto) 280 10^3/uL (140-450); Red Blood Cells 3.07 10^6/uL (4.5-5.90); Red Cell Distribution Width 14.4 % (11.8-14.3); White Blood Cell 14.5 10^3/uL (4.4-10.8)
[2017-12-17] MEDS: Ensure Enlive Strawberry 8oz Bottle PO SCH ×4 (05:53→21:09)
[2017-12-17] MEDS: BUMETANIDE (0.25MG/ML) 4 ML VIAL IV SCH ×2 (06:32→18:27)
[2017-12-17 09:00] LABS: INR 1.16 (0.9-1.15); Partial Thromboplastin Time 29.4 sec (23.78-33.04); Prothrombin Time 12.3 sec (9.27-12.13)
[2017-12-17] MEDS: SODIUM CHLOR 0.9% PF (SALINE LOCK) 10ML VIAL/SYR IV SCH ×2 (09:35→21:04)
[2017-12-17] MEDS: DOCUSATE SOD 100 MG CAP PO SCH ×2 (09:36→10:00)
[2017-12-17] MEDS: ASPirin 81 mg TAB PO SCH (09:36)
[2017-12-17] MEDS: CLOPIDOGREL BISULFATE 75 MG TAB PO SCH (09:42)
[2017-12-17] MEDS: DIGOXIN 0.125 MG TAB PO SCH (09:42)
[2017-12-17] MEDS: CARVEDILOL 3.125 MG TAB PO SCH ×2 (09:42→21:06)
[2017-12-17] MEDS: SACUBITRIL-VALSARTAN 24mg/26mg TAB PO SCH ×2 (09:42→21:05)
[2017-12-17] MEDS: PANTOPRAZOLE 40 MG TAB PO SCH (09:43)
[2017-12-17] MEDS ORDERED: MORPHINE SULFATE 4 MG/ML SYR/VIAL IV PRN (15:45)
[2017-12-17] MEDS: ATORVASTATIN 20 MG TAB PO SCH (21:05)
[2017-12-18] VITALS (9 sets, daily range): BP systolic 89–124; BP diastolic 41–51
[2017-12-18] MEDS: VANCOMYCIN 1GM/250ML 250 ML IV SCH (03:00)
[2017-12-18 05:22] LABS: Basophils # (auto) 0 uL; Basophils % (auto) 0.3 % (0.0-2.0); Eosinophils # (auto) 0.5 uL; Eosinophils % (auto) 3.5 % (0.0-7.0); Hematocrit 32.2 % (41.0-53.0); Hemoglobin 10.4 g/dL (13.5-17.5); Lymphocytes # (auto) 1.1 uL; Lymphocytes % (auto) 8.4 % (10.0-50.0); Mean Corpuscular Hemoglobin 30.5 pg (28.0-32.0); Mean Corpuscular Hgb Conc. 32.3 g/dL (32.0-36.0); Mean Corpuscular Volume 94.4 fL (80.0-100.0); Monocytes % (auto) 7.9 % (0.0-12.0); Neutrophils # (auto) 10.3 uL; Neutrophils % (auto) 79.9 % (37.0-80.0); Platelet Count (auto) 322 10^3/uL (140-450); Red Blood Cells 3.41 10^6/uL (4.5-5.90); Red Cell Distribution Width 14.3 % (11.8-14.3)
[2017-12-18 05:45] LABS: BUN/Creatinine Ratio 24.2; Potassium 3.8 mmol/L (3.5-5.1)
[2017-12-18] MEDS: Ensure Enlive Strawberry 8oz Bottle PO SCH ×4 (06:00→22:00)
[2017-12-18] MEDS: PIPERACILLIN-TAZOB 3.375GM 100 ML IV SCH ×3 (06:28→17:35)
[2017-12-18] MEDS: BUMETANIDE (0.25MG/ML) 4 ML VIAL IV SCH ×2 (06:28→17:58)
[2017-12-18] MEDS: CARVEDILOL 3.125 MG TAB PO SCH ×3 (09:42→23:00)
[2017-12-18] MEDS: SACUBITRIL-VALSARTAN 24mg/26mg TAB PO SCH ×2 (09:44→22:00)
[2017-12-18] MEDS: PANTOPRAZOLE 40 MG TAB PO SCH (09:52)
[2017-12-18] MEDS: DOCUSATE SOD 100 MG CAP PO SCH (09:52)
[2017-12-18] MEDS: ASPirin 81 mg TAB PO SCH (09:52)
[2017-12-18] MEDS: CLOPIDOGREL BISULFATE 75 MG TAB PO SCH (09:52)
[2017-12-18] MEDS: SODIUM CHLOR 0.9% PF (SALINE LOCK) 10ML VIAL/SYR IV SCH ×2 (09:53→22:00)
[2017-12-18] MEDS ORDERED: ENOXAPARIN SOD 30 MG/0.3 ML SYRINGE SC ONE (12:00)
[2017-12-18] MEDS: ATORVASTATIN 20 MG TAB PO SCH (22:00)
[2017-12-19] VITALS (8 sets, daily range): BP systolic 98–141; BP diastolic 45–80
[2017-12-19 05:18] LABS: Basophils # (auto) 0 uL; Basophils % (auto) 0.3 % (0.0-2.0); Eosinophils # (auto) 0.4 uL; Eosinophils % (auto) 2.6 % (0.0-7.0); Hematocrit 34.2 % (41.0-53.0); Hemoglobin 10.8 g/dL (13.5-17.5); Lymphocytes # (auto) 1.3 uL; Mean Corpuscular Hemoglobin 30.8 pg (28.0-32.0); Mean Corpuscular Hgb Conc. 31.7 g/dL (32.0-36.0); Monocytes # (auto) 1.3 uL; Monocytes % (auto) 9.5 % (0.0-12.0); Neutrophils % (auto) 78.6 % (37.0-80.0); Nucleated Red Blood Cells % 0.1 %; Platelet Count (auto) 350 10^3/uL (140-450); Red Blood Cells 3.52 10^6/uL (4.5-5.90); Red Cell Distribution Width 14.5 % (11.8-14.3)
[2017-12-19 05:36] LABS: Chloride 105 mmol/L (98-107); Potassium 3.7 mmol/L (3.5-5.1); Sodium 138 mmol/L (136-145)
[2017-12-19 05:40] LABS: Anion Gap 8 (5-15); BUN/Creatinine Ratio 20.7; Blood Urea Nitrogen 35 mg/dL (7-18); Calcium 7.4 mg/dL (8.5-10.1); Carbon Dioxide 25 mmol/L (21-32); GFR African American 50 mL/min; GFR Non-African American 42 mL/min; Glucose 117 mg/dL (74-106); Magnesium 2.4 mg/dL (1.6-2.6)
[2017-12-19] MEDS: Ensure Enlive Strawberry 8oz Bottle PO SCH ×4 (06:00→22:00)
[2017-12-19] MEDS: PIPERACILLIN-TAZOB 3.375GM 100 ML IV SCH ×4 (06:10→18:12)
[2017-12-19] MEDS: BUMETANIDE (0.25MG/ML) 4 ML VIAL IV SCH ×2 (06:11→18:12)
[2017-12-19] MEDS: SODIUM CHLOR 0.9% PF (SALINE LOCK) 10ML VIAL/SYR IV SCH ×2 (09:36→22:00)
[2017-12-19] MEDS: DOCUSATE SOD 100 MG CAP PO SCH (09:36)
[2017-12-19] MEDS: ENOXAPARIN SOD 30 MG/0.3 ML SYRINGE SC SCH (09:37)
[2017-12-19] MEDS: PANTOPRAZOLE 40 MG TAB PO SCH (10:00)
[2017-12-19] MEDS: SACUBITRIL-VALSARTAN 24mg/26mg TAB PO SCH ×2 (10:00→21:38)
[2017-12-19] MEDS: ASPirin 81 mg TAB PO SCH (10:00)
[2017-12-19] MEDS: DIGOXIN 0.125 MG TAB PO SCH (10:00)
[2017-12-19] MEDS: CLOPIDOGREL BISULFATE 75 MG TAB PO SCH (10:00)
[2017-12-19] MEDS ORDERED: ACETAMINOPHEN 500 MG TAB PO PRN (12:30)
[2017-12-19] MEDS ORDERED: NITROGLYCERIN 0.4 MG SL TAB SL PRN (12:30)
[2017-12-19 14:07] LABS: Urine Bacteria NONE SEEN /hpf (None Seen); Urine Blood TRACE /uL (Negative); Urine WBC 1 /hpf (0 - 3)
[2017-12-19] MEDS: VANCOMYCIN 1GM/250ML 250 ML IV SCH (15:46)
[2017-12-19] MEDS: CARVEDILOL 3.125 MG TAB PO SCH (21:38)
[2017-12-19] MEDS: ATORVASTATIN 20 MG TAB PO SCH (21:38)
[2017-12-20] VITALS (57 sets, daily range): BP systolic 58–131; BP diastolic 26–97
[2017-12-20 05:54] LABS: Basophils # (auto) 0.1 uL; Basophils % (auto) 0.6 % (0.0-2.0); Eosinophils # (auto) 0.2 uL; Eosinophils % (auto) 1.9 % (0.0-7.0); Hematocrit 30.1 % (41.0-53.0); Hemoglobin 9.9 g/dL (13.5-17.5); Lymphocytes # (auto) 1.1 uL; Lymphocytes % (auto) 8.1 % (10.0-50.0); Mean Corpuscular Hemoglobin 30.9 pg (28.0-32.0); Mean Corpuscular Hgb Conc. 32.9 g/dL (32.0-36.0); Monocytes # (auto) 1.5 uL; Monocytes % (auto) 11.6 % (0.0-12.0); Neutrophils # (auto) 10.2 uL; Neutrophils % (auto) 77.8 % (37.0-80.0); Platelet Count (auto) 351 10^3/uL (140-450); Red Cell Distribution Width 14.1 % (11.8-14.3); White Blood Cell 13.1 10^3/uL (4.4-10.8)
[2017-12-20] MEDS: BUMETANIDE (0.25MG/ML) 4 ML VIAL IV SCH ×3 (06:18→19:38)
[2017-12-20] MEDS: Ensure Enlive Strawberry 8oz Bottle PO SCH ×4 (06:19→21:02)
[2017-12-20] MEDS: PIPERACILLIN-TAZOB 3.375GM 100 ML IV SCH ×4 (06:19→18:17)
[2017-12-20 06:21] LABS: Albumin 1.9 g/dL (3.4-5.0); BUN/Creatinine Ratio 18.3; Bilirubin, Total 0.9 mg/dL (0.2-1.0); Calcium 7.8 mg/dL (8.5-10.1); Total Protein 7.4 g/dL (6.4-8.2)
[2017-12-20] MEDS ORDERED: DOBUTamine 1000MCG/ML 250 ML IV SCH ×3 (09:45→18:15)
[2017-12-20] MEDS: CARVEDILOL 3.125 MG TAB PO SCH (09:58)
[2017-12-20] MEDS: SACUBITRIL-VALSARTAN 24mg/26mg TAB PO SCH ×2 (10:00→21:02)
[2017-12-20] MEDS: ENOXAPARIN SOD 30 MG/0.3 ML SYRINGE SC SCH (11:08)
[2017-12-20] MEDS: SODIUM CHLOR 0.9% PF (SALINE LOCK) 10ML VIAL/SYR IV SCH ×2 (11:09→21:03)
[2017-12-20] MEDS ORDERED: VANCOMYCIN 1GM/250ML 250 ML IV SCH (15:00)
[2017-12-20] MEDS: ASPirin 81 mg TAB PO SCH (15:13)
[2017-12-20] MEDS: PANTOPRAZOLE 40 MG TAB PO SCH (15:14)
[2017-12-20] MEDS: DOCUSATE SOD 100 MG CAP PO SCH (15:14)
[2017-12-20] MEDS: CLOPIDOGREL BISULFATE 75 MG TAB PO SCH (15:14)
[2017-12-20] MEDS: ATORVASTATIN 20 MG TAB PO SCH (21:02)
[2017-12-21] VITALS (92 sets, daily range): BP systolic 57–149; BP diastolic 28–79
[2017-12-21] MEDS: PIPERACILLIN-TAZOB 3.375GM 100 ML IV SCH ×5 (00:09→23:24)
[2017-12-21] MEDS: DOBUTamine 1000MCG/ML 250 ML IV SCH ×2 (01:29→16:49)
[2017-12-21] MEDS: BUMETANIDE (0.25MG/ML) 4 ML VIAL IV SCH (05:31)
[2017-12-21] MEDS: Ensure Enlive Strawberry 8oz Bottle PO SCH ×4 (05:32→21:23)
[2017-12-21 08:44] LABS: BUN/Creatinine Ratio 19.9; Calcium 7.9 mg/dL (8.5-10.1); Potassium 3.5 mmol/L (3.5-5.1)
[2017-12-21] MEDS: DOCUSATE SOD 100 MG CAP PO SCH (10:00)
[2017-12-21] MEDS: ENOXAPARIN SOD 30 MG/0.3 ML SYRINGE SC SCH (10:23)
[2017-12-21] MEDS: PANTOPRAZOLE 40 MG TAB PO SCH (10:34)
[2017-12-21] MEDS: CLOPIDOGREL BISULFATE 75 MG TAB PO SCH (10:34)
[2017-12-21] MEDS: DIGOXIN 0.125 MG TAB PO SCH (10:34)
[2017-12-21] MEDS: ASPirin 81 mg TAB PO SCH (10:34)
[2017-12-21] MEDS: SACUBITRIL-VALSARTAN 24mg/26mg TAB PO SCH ×2 (10:34→21:24)
[2017-12-21] MEDS: SODIUM CHLOR 0.9% PF (SALINE LOCK) 10ML VIAL/SYR IV SCH ×2 (10:35→21:24)
[2017-12-21] MEDS: ATORVASTATIN 20 MG TAB PO SCH (21:24)
[2017-12-22] VITALS (24 sets, daily range): BP systolic 85–151; BP diastolic 30–82
[2017-12-22] MEDS: DOBUTamine 1000MCG/ML 250 ML IV SCH ×2 (00:55→16:10)
[2017-12-22] MEDS: Ensure Enlive Strawberry 8oz Bottle PO SCH ×4 (06:00→22:00)
[2017-12-22] MEDS: PIPERACILLIN-TAZOB 3.375GM 100 ML IV SCH ×3 (06:38→18:02)
[2017-12-22 06:48] LABS: BUN/Creatinine Ratio 21.3; Calcium 7.7 mg/dL (8.5-10.1); Potassium 3.4 mmol/L (3.5-5.1)
[2017-12-22] MEDS: DOCUSATE SOD 100 MG CAP PO SCH ×2 (10:00→11:10)
[2017-12-22] MEDS: SODIUM CHLOR 0.9% PF (SALINE LOCK) 10ML VIAL/SYR IV SCH ×2 (10:29→22:00)
[2017-12-22] MEDS: BUMETANIDE (0.25MG/ML) 4 ML VIAL IV SCH (10:29)
[2017-12-22] MEDS: CLOPIDOGREL BISULFATE 75 MG TAB PO SCH (11:05)
[2017-12-22] MEDS: PANTOPRAZOLE 40 MG TAB PO SCH (11:05)
[2017-12-22] MEDS: ASPirin 81 mg TAB PO SCH (11:05)
[2017-12-22] MEDS: ENOXAPARIN SOD 30 MG/0.3 ML SYRINGE SC SCH (11:06)
[2017-12-22] MEDS: SACUBITRIL-VALSARTAN 24mg/26mg TAB PO SCH ×2 (11:11→22:00)
[2017-12-22] MEDS ORDERED: POTASSIUM EFFERVESENT TAB 25 MEQ PO ONE (11:30)
[2017-12-22] MEDS: ATORVASTATIN 20 MG TAB PO SCH (22:00)
[2017-12-23] MEDS: PIPERACILLIN-TAZOB 3.375GM 100 ML IV SCH ×2 (00:25→05:40)
[2017-12-23 00:40] VITALS: BP 117/54
[2017-12-23 04:00] VITALS: BP 141/57
[2017-12-23] MEDS: Ensure Enlive Strawberry 8oz Bottle PO SCH ×4 (05:40→21:11)
[2017-12-23 07:30] LABS: Basophils # (auto) 0.1 uL; Basophils % (auto) 0.7 % (0.0-2.0); Eosinophils # (auto) 0.2 uL; Eosinophils % (auto) 2.7 % (0.0-7.0); Hematocrit 29.5 % (41.0-53.0); Hemoglobin 9.8 g/dL (13.5-17.5); Lymphocytes # (auto) 0.7 uL; Lymphocytes % (auto) 9.7 % (10.0-50.0); Mean Corpuscular Hemoglobin 30.7 pg (28.0-32.0); Mean Corpuscular Hgb Conc. 33.2 g/dL (32.0-36.0); Mean Corpuscular Volume 92.3 fL (80.0-100.0); Monocytes % (auto) 12.9 % (0.0-12.0); Neutrophils # (auto) 5.7 uL; Platelet Count (auto) 371 10^3/uL (140-450); Red Blood Cells 3.19 10^6/uL (4.5-5.90); Red Cell Distribution Width 14.3 % (11.8-14.3); White Blood Cell 7.6 10^3/uL (4.4-10.8)
[2017-12-23 07:45] LABS: Albumin 1.8 g/dL (3.4-5.0); Bilirubin, Total 0.5 mg/dL (0.2-1.0); Calcium 7.8 mg/dL (8.5-10.1); Potassium 3.4 mmol/L (3.5-5.1); Total Protein 6.9 g/dL (6.4-8.2)
[2017-12-23 08:25] VITALS: BP 126/66
[2017-12-23] MEDS: ENOXAPARIN SOD 30 MG/0.3 ML SYRINGE SC SCH ×2 (10:00→10:44)
[2017-12-23] MEDS ORDERED: metroNIDAZOLE 500 MG TAB PO ONE (10:15)
[2017-12-23] MEDS ORDERED: POTASSIUM CHL 20 Meq TABLET PO ONE (10:15)
[2017-12-23] MEDS: DIGOXIN 0.125 MG TAB PO SCH (10:43)
[2017-12-23] MEDS: ASPirin 81 mg TAB PO SCH (10:43)
[2017-12-23] MEDS: CLOPIDOGREL BISULFATE 75 MG TAB PO SCH (10:43)
[2017-12-23] MEDS: SACUBITRIL-VALSARTAN 24mg/26mg TAB PO SCH ×2 (10:44→21:12)
[2017-12-23] MEDS: SODIUM CHLOR 0.9% PF (SALINE LOCK) 10ML VIAL/SYR IV SCH ×2 (10:45→21:11)
[2017-12-23] MEDS: BUMETANIDE (0.25MG/ML) 4 ML VIAL IV SCH (10:45)
[2017-12-23 12:00] VITALS: BP 102/48
[2017-12-23 15:49] VITALS: BP 125/57
[2017-12-23] MEDS: metroNIDAZOLE 500 MG TAB PO SCH ×2 (17:21→21:12)
[2017-12-23 19:48] VITALS: BP 126/54
[2017-12-23] MEDS: ATORVASTATIN 20 MG TAB PO SCH (21:12)
[2017-12-24] VITALS: BP 134/67
[2017-12-24 04:00] VITALS: BP 139/68
[2017-12-24] MEDS: Ensure Enlive Strawberry 8oz Bottle PO SCH ×4 (05:18→22:00)
[2017-12-24] MEDS: metroNIDAZOLE 500 MG TAB PO SCH ×3 (05:25→22:09)
[2017-12-24 08:00] VITALS: BP 151/85
[2017-12-24 10:24] LABS: Anion Gap 10 (5-15); BUN/Creatinine Ratio 23.8; Blood Urea Nitrogen 31 mg/dL (7-18); Calcium 7.9 mg/dL (8.5-10.1); Carbon Dioxide 27 mmol/L (21-32); Chloride 108 mmol/L (98-107); GFR African American 68 mL/min; GFR Non-African American 56 mL/min; Glucose 112 mg/dL (74-106); Potassium 3.7 mmol/L (3.5-5.1); Sodium 145 mmol/L (136-145)
[2017-12-24] MEDS: SODIUM CHLOR 0.9% PF (SALINE LOCK) 10ML VIAL/SYR IV SCH ×2 (10:30→22:07)
[2017-12-24] MEDS: ENOXAPARIN SOD 30 MG/0.3 ML SYRINGE SC SCH (10:38)
[2017-12-24] MEDS: BUMETANIDE (0.25MG/ML) 4 ML VIAL IV SCH (10:38)
[2017-12-24] MEDS: ASPirin 81 mg TAB PO SCH (10:39)
[2017-12-24] MEDS: SACUBITRIL-VALSARTAN 24mg/26mg TAB PO SCH ×2 (10:39→22:11)
[2017-12-24] MEDS: CLOPIDOGREL BISULFATE 75 MG TAB PO SCH (10:39)
[2017-12-24 11:55] VITALS: BP 136/59
[2017-12-24 16:00] VITALS: BP 121/61
[2017-12-24 20:00] VITALS: BP 122/52
[2017-12-24] MEDS: ATORVASTATIN 20 MG TAB PO SCH (22:10)
[2017-12-25] VITALS: BP 124/70
[2017-12-25 04:00] VITALS: BP 143/69
[2017-12-25] MEDS: metroNIDAZOLE 500 MG TAB PO SCH (06:00)
[2017-12-25] MEDS: Ensure Enlive Strawberry 8oz Bottle PO SCH ×4 (06:00→22:00)
[2017-12-25 08:00] VITALS: BP 148/52
[2017-12-25] MEDS: BUMETANIDE (0.25MG/ML) 4 ML VIAL IV SCH (10:01)
[2017-12-25] MEDS: ENOXAPARIN SOD 30 MG/0.3 ML SYRINGE SC SCH (10:02)
[2017-12-25] MEDS: SODIUM CHLOR 0.9% PF (SALINE LOCK) 10ML VIAL/SYR IV SCH ×2 (10:02→23:05)
[2017-12-25] MEDS: CLOPIDOGREL BISULFATE 75 MG TAB PO SCH (10:11)
[2017-12-25] MEDS: DIGOXIN 0.125 MG TAB PO SCH (10:11)
[2017-12-25] MEDS: ASPirin 81 mg TAB PO SCH (10:12)
[2017-12-25 11:45] VITALS: BP 143/67
[2017-12-25] MEDS: SACUBITRIL-VALSARTAN 24mg/26mg TAB PO SCH ×2 (14:10→23:04)
[2017-12-25 15:49] VITALS: BP 148/76
[2017-12-25 19:52] VITALS: BP 135/65
[2017-12-25] MEDS: ATORVASTATIN 20 MG TAB PO SCH (23:04)
[2017-12-26 00:39] VITALS: BP 129/60
[2017-12-26 05:05] VITALS: BP 127/72
[2017-12-26] MEDS: Ensure Enlive Strawberry 8oz Bottle PO SCH ×4 (06:00→22:17)
[2017-12-26 09:00] VITALS: BP 137/74
[2017-12-26] MEDS: CLOPIDOGREL BISULFATE 75 MG TAB PO SCH (09:51)
[2017-12-26] MEDS: BUMETANIDE (0.25MG/ML) 4 ML VIAL IV SCH (09:51)
[2017-12-26] MEDS: ENOXAPARIN SOD 30 MG/0.3 ML SYRINGE SC SCH (09:52)
[2017-12-26] MEDS: SACUBITRIL-VALSARTAN 24mg/26mg TAB PO SCH ×2 (09:52→21:31)
[2017-12-26] MEDS: ASPirin 81 mg TAB PO SCH (09:52)
[2017-12-26] MEDS: SODIUM CHLOR 0.9% PF (SALINE LOCK) 10ML VIAL/SYR IV SCH ×2 (09:53→22:16)
[2017-12-26 13:00] VITALS: BP 129/74
[2017-12-26 17:00] VITALS: BP 105/43
[2017-12-26] MEDS: ATORVASTATIN 20 MG TAB PO SCH (21:31)
[2017-12-26 22:00] VITALS: BP 125/54
[2017-12-27 05:00] VITALS: BP 128/58
[2017-12-27] MEDS: Ensure Enlive Strawberry 8oz Bottle PO SCH ×2 (06:45→11:47)
[2017-12-27 09:34] VITALS: BP 132/59
[2017-12-27] MEDS: BUMETANIDE (0.25MG/ML) 4 ML VIAL IV SCH (11:45)
[2017-12-27] MEDS: SODIUM CHLOR 0.9% PF (SALINE LOCK) 10ML VIAL/SYR IV SCH (11:45)
[2017-12-27] MEDS: ASPirin 81 mg TAB PO SCH (11:46)
[2017-12-27] MEDS: SACUBITRIL-VALSARTAN 24mg/26mg TAB PO SCH (11:46)
[2017-12-27] MEDS: DIGOXIN 0.125 MG TAB PO SCH (11:46)
[2017-12-27] MEDS: CLOPIDOGREL BISULFATE 75 MG TAB PO SCH (11:46)
[2017-12-27] MEDS: ENOXAPARIN SOD 30 MG/0.3 ML SYRINGE SC SCH (11:47)
[2017-12-27 13:23] VITALS: BP 132/59
[2017-12-27 13:25] VITALS: BP 110/49
== END 2017-12-27 15:30 | DRG 853 ==
LOC: ER 12:04 → TELE 12:05 → ICU WEST 17:53 → DOU IN ICU 12-11 14:03 → TELE-CENTR 12-26 08:32
PROVIDERS: ADMIT Internal Medicine; ATTEND Internal Medicine
PROC: 5A02210 Assistance with Cardiac Output using Balloon Pump, Continuous (ICD-10-PCS; principal; 2017-12-05)
PROC: B3121ZZ Fluoroscopy of Left Subclavian Artery using Low Osmolar Contrast (ICD-10-PCS; 2017-12-05)
PROC: 5A09357 Assistance with Respiratory Ventilation, Less than 24 Consecutive Hours, Continuous Positive Airway Pressure (ICD-10-PCS; 2017-12-05)
PROC: 027034Z Dilation of Coronary Artery, One Artery with Drug-eluting Intraluminal Device, Percutaneous Approach (ICD-10-PCS; 2017-12-05)
PROC: 02C03ZZ Extirpation of Matter from Coronary Artery, One Artery, Percutaneous Approach (ICD-10-PCS; 2017-12-05)
PROC: B2121ZZ Fluoroscopy of Single Coronary Artery Bypass Graft using Low Osmolar Contrast (ICD-10-PCS; 2017-12-05)
PROC: 4A023N7 Measurement of Cardiac Sampling and Pressure, Left Heart, Percutaneous Approach (ICD-10-PCS; 2017-12-05)
PROC: B2111ZZ Fluoroscopy of Multiple Coronary Arteries using Low Osmolar Contrast (ICD-10-PCS; 2017-12-05)
PROC: B2151ZZ Fluoroscopy of Left Heart using Low Osmolar Contrast (ICD-10-PCS; 2017-12-05)
PROC: B41D1ZZ Fluoroscopy of Aorta and Bilateral Lower Extremity Arteries using Low Osmolar Contrast (ICD-10-PCS; 2017-12-05)
PROC: 02HV33Z Insertion of Infusion Device into Superior Vena Cava, Percutaneous Approach (ICD-10-PCS; 2017-12-07)
PROC: 5A09357 Assistance with Respiratory Ventilation, Less than 24 Consecutive Hours, Continuous Positive Airway Pressure (ICD-10-PCS; 2017-12-08)
PROC: 5A09357 Assistance with Respiratory Ventilation, Less than 24 Consecutive Hours, Continuous Positive Airway Pressure (ICD-10-PCS; 2017-12-09)
PROC: 5A09357 Assistance with Respiratory Ventilation, Less than 24 Consecutive Hours, Continuous Positive Airway Pressure (ICD-10-PCS; 2017-12-10)
PROC: 5A09357 Assistance with Respiratory Ventilation, Less than 24 Consecutive Hours, Continuous Positive Airway Pressure (ICD-10-PCS; 2017-12-11)
PROC: 5A09357 Assistance with Respiratory Ventilation, Less than 24 Consecutive Hours, Continuous Positive Airway Pressure (ICD-10-PCS; 2017-12-12)
PROC: 5A09357 Assistance with Respiratory Ventilation, Less than 24 Consecutive Hours, Continuous Positive Airway Pressure (ICD-10-PCS; 2017-12-13)
PROC: 5A09357 Assistance with Respiratory Ventilation, Less than 24 Consecutive Hours, Continuous Positive Airway Pressure (ICD-10-PCS; 2017-12-15)
DX: A41.9 Sepsis, unspecified organism (principal); I21.19 ST elevation (STEMI) myocardial infarction involving other coronary artery of inferior wall; I50.43 Acute on chronic combined systolic (congestive) and diastolic (congestive) heart failure; R57.0 Cardiogenic shock; N17.0 Acute kidney failure with tubular necrosis; K72.00 Acute and subacute hepatic failure without coma; J96.00 Acute respiratory failure, unspecified whether with hypoxia or hypercapnia; J18.9 Pneumonia, unspecified organism; I13.0 Hypertensive heart and chronic kidney disease with heart failure and stage 1 through stage 4 chronic kidney disease, or unspecified chronic kidney disease; E87.2 Acidosis; I25.810 Atherosclerosis of coronary artery bypass graft(s) without angina pectoris; J44.0 Chronic obstructive pulmonary disease with (acute) lower respiratory infection; R65.10 Systemic inflammatory response syndrome (SIRS) of non-infectious origin without acute organ dysfunction; J44.9 Chronic obstructive pulmonary disease, unspecified; N18.3 Chronic kidney disease, stage 3 (moderate); E87.6 Hypokalemia; D69.6 Thrombocytopenia, unspecified; E78.5 Hyperlipidemia, unspecified; F32.9 Major depressive disorder, single episode, unspecified; I25.2 Old myocardial infarction; I25.10 Atherosclerotic heart disease of native coronary artery without angina pectoris; I25.5 Ischemic cardiomyopathy; I35.0 Nonrheumatic aortic (valve) stenosis; Z66 Do not resuscitate; Z86.73 Personal history of transient ischemic attack (TIA), and cerebral infarction without residual deficits; Z95.1 Presence of aortocoronary bypass graft; Z87.891 Personal history of nicotine dependence; Z95.5 Presence of coronary angioplasty implant and graft; Z90.49 Acquired absence of other specified parts of digestive tract; Z90.89 Acquired absence of other organs; Z82.49 Family history of ischemic heart disease and other diseases of the circulatory system
CPT/HCPCS: 33967; 36415; 36569; 36600; 70450; 71045; 71046; 71250; 73020; 75710; 80048; 80053; 80061; 80162; 80202; 81001; 82270; 82565; 82805; 83735; 83880; 84132; 84443; 84484; 85025; 85610; 85730; 87081; 87493; 92933; 93005; 93306; 93459; 93926; 94660; 94761; 96372; 96374; 96375; 97110; 97116; 97163; 97530; 99152; 99153; 99291; A4565; A6257; C1874; C9113; J0171; J0330; J0696; J2001; J2250; J2405; J2543; J7060; Q9967